=== PATIENT | female | born 1945 | race Asian ===

== ENCOUNTER → 2019-01-29 | Outpatient (CLI) | payer MEDICARE | LOC: FB.CLBR 08:00 | PROVIDERS: ATTEND Nurse Practitioner Family | DX: R21 Rash and other nonspecific skin eruption (principal); L50.0 Allergic urticaria | CPT/HCPCS: 99213 ==

== ENCOUNTER 2021-09-21 18:55 | Emergency (ER) | payer MEDICARE ==
[2021-09-21] MEDS ORDERED: Acetaminophen/HYDROcodone 325-5 MG Tab PO ONE (18:56)
[2021-09-21 20:20] LABS: ESTIMATED GFR 92 mL/min (>60)
[2021-09-21] MEDS ORDERED: oxyCODONE 5 MG Tab PO ONE (20:26)
[2021-09-21] MEDS ORDERED: Ondansetron 4 MG Tab.DIS PO ONE (20:26)
[2021-09-21] MEDS ORDERED: traMADol 50 MG Tab PO ONE (20:41)
== END 2021-09-21 22:48 | disposition home or self-care (01) ==
LOC: FB.ED 18:55
DX: S32.040A Wedge compression fracture of fourth lumbar vertebra, initial encounter for closed fracture (principal); M81.0 Age-related osteoporosis without current pathological fracture; M51.36 Other intervertebral disc degeneration, lumbar region; Z79.899 Other long term (current) drug therapy; W18.40XA Slipping, tripping and stumbling without falling, unspecified, initial encounter; Y92.129 Unspecified place in nursing home as the place of occurrence of the external cause
CPT/HCPCS: 36415; 72131; 80053; 80307; 81001; 85025; 99284; A9270; Q0162

== ENCOUNTER 2021-09-24 00:40 | Inpatient (IN) | payer MEDICARE ==
[2021-09-24] MEDS ORDERED: Ondansetron 4 MG/2 ML SDV IV PRN (01:00)
[2021-09-24] MEDS: Sodium Chloride 0.9% 1,000 ML IV SCH ×3 (01:00→21:20)
[2021-09-24] MEDS ORDERED: Acetaminophen/HYDROcodone 325-5 MG Tab PO PRN (01:00)
[2021-09-24] MEDS ORDERED: Sodium Chloride 0.9% 10 ML Syringe FLUSH PRN (01:12)
[2021-09-24 01:29] LABS: ESTIMATED GFR 89 mL/min (>60)
[2021-09-24] MEDS ORDERED: Acetaminophen/oxyCODONE 325-5 MG Tab PO PRN (01:30)
[2021-09-24] MEDS: Morphine 2 MG/ML SYRINGE IVPUSH PRN (01:31)
[2021-09-24] MEDS: Enoxaparin 40 MG/0.4 ML Syringe SUBCUT SCH (04:29)
[2021-09-24] MEDS ORDERED: Bisacodyl 10 MG Supp RECTAL PRN (09:48)
[2021-09-24] MEDS ORDERED: Sertraline 100 MG Tab PO SCH (10:00)
[2021-09-24] MEDS ORDERED: cefTRIAXone 1 GM Vial IVPUSH SCH (10:00)
[2021-09-24] MEDS: Ibuprofen 200 MG Tab PO SCH ×3 (10:46→20:07)
[2021-09-24] MEDS: Lisinopril 10 MG Tab PO SCH (10:46)
[2021-09-24] MEDS: Sertraline 50 MG Tab PO SCH (10:46)
[2021-09-24] MEDS: amLODIPine 10 MG Tab PO SCH (10:46)
[2021-09-24] MEDS: Montelukast 10 MG Tab PO SCH (10:47)
[2021-09-24] MEDS: Acetaminophen 500 MG Tab PO SCH ×3 (10:47→20:07)
[2021-09-24] MEDS: oxyCODONE 5 MG Tab PO PRN ×3 (10:52→20:05)
[2021-09-24] MEDS: Fluticasone NASAL Spray 16 GM Bottle NASBOTH SCH (20:09)
[2021-09-24] MEDS ORDERED: atorvaSTATin 10 MG Tab PO SCH (21:00)
[2021-09-25] MEDS: Enoxaparin 40 MG/0.4 ML Syringe SUBCUT SCH (01:27)
[2021-09-25] MEDS: Morphine 2 MG/ML SYRINGE IVPUSH PRN (01:28)
[2021-09-25] MEDS: Acetaminophen 500 MG Tab PO SCH ×2 (03:22→08:04)
[2021-09-25] MEDS: Ibuprofen 200 MG Tab PO SCH ×2 (03:22→08:05)
[2021-09-25 06:47] LABS: ESTIMATED GFR 92 mL/min (>60)
[2021-09-25] MEDS: Sertraline 50 MG Tab PO SCH (08:05)
[2021-09-25] MEDS: Montelukast 10 MG Tab PO SCH (08:05)
[2021-09-25] MEDS: Lisinopril 10 MG Tab PO SCH (08:05)
[2021-09-25] MEDS: Fluticasone NASAL Spray 16 GM Bottle NASBOTH SCH (08:05)
[2021-09-25] MEDS: amLODIPine 10 MG Tab PO SCH (08:05)
[2021-09-25] MEDS ORDERED: cefTRIAXone 1 GM Vial IM ONE (10:15)
[2021-09-25] MEDS ORDERED: cefTRIAXone 1 GM Vial IM SCH ×2 (10:15→11:00)
[2021-09-25] MEDS: oxyCODONE 5 MG Tab PO PRN (10:54)
== END 2021-09-25 12:50 | disposition home health service (06) | DRG 552 ==
LOC: FB.ED 00:40 → FB.MS 01:00
PROVIDERS: ADMIT Family Medicine; ATTEND Family Medicine
DX: S32.049A Unspecified fracture of fourth lumbar vertebra, initial encounter for closed fracture (principal); W07.XXXA Fall from chair, initial encounter; Y92.59 Other trade areas as the place of occurrence of the external cause; S32.040A Wedge compression fracture of fourth lumbar vertebra, initial encounter for closed fracture; M19.90 Unspecified osteoarthritis, unspecified site; N30.00 Acute cystitis without hematuria; M81.0 Age-related osteoporosis without current pathological fracture; F03.90 Unspecified dementia, unspecified severity, without behavioral disturbance, psychotic disturbance, mood disturbance, and anxiety; F32.A Depression, unspecified; E78.5 Hyperlipidemia, unspecified; Z96.641 Presence of right artificial hip joint; G89.29 Other chronic pain; K21.9 Gastro-esophageal reflux disease without esophagitis; I10 Essential (primary) hypertension; E03.9 Hypothyroidism, unspecified; Z79.1 Long term (current) use of non-steroidal anti-inflammatories (NSAID); Z79.52 Long term (current) use of systemic steroids; Z79.899 Other long term (current) drug therapy; Z87.440 Personal history of urinary (tract) infections; Z98.42 Cataract extraction status, left eye; Z98.41 Cataract extraction status, right eye; Z79.890 Hormone replacement therapy; W07.XXXD Fall from chair, subsequent encounter
CPT/HCPCS: 36415; 80048; 80053; 81001; 82550; 85025; 87086; 87088; 87186; A9270-GY; J0696; J1650; J2270; J3490; J7030

== ENCOUNTER 2021-10-30 08:02 | Observation (INO) | payer MEDICARE ==
[2021-10-30 09:02] LABS: ESTIMATED GFR 89 mL/min (>60)
[2021-10-30] MEDS ORDERED: Acetaminophen/HYDROcodone 325-5 MG Tab PO STA (09:35)
[2021-10-30] MEDS ORDERED: Sodium Chloride 0.9% 10 ML Syringe FLUSH PRN (11:00)
[2021-10-30] MEDS ORDERED: Ketorolac 30 MG/ML SDV IVPUSH PRN (11:00)
[2021-10-30] MEDS ORDERED: Ondansetron 4 MG/2 ML SDV IV PRN (11:00)
[2021-10-30] MEDS: Sodium Chloride 0.9% 1,000 ML IV SCH ×2 (11:46→19:59)
[2021-10-30] MEDS: Ketorolac 15 MG/ML SDV IVPUSH PRN (11:54)
[2021-10-30] MEDS ORDERED: Magnesium Hydroxide 400 MG/5 ML Susp 30 ML Cup PO PRN (13:46)
[2021-10-30] MEDS ORDERED: Sennosides 8.6 MG Tab PO PRN (13:46)
[2021-10-30] MEDS ORDERED: Bisacodyl 10 MG Supp RECTAL PRN (13:46)
[2021-10-30] MEDS ORDERED: oxyCODONE 5 MG Tab PO PRN (13:46)
[2021-10-30] MEDS ORDERED: guaiFENesin 100 MG/5 ML Soln 5 ML UD Cup PO PRN (13:46)
[2021-10-30] MEDS ORDERED: Loperamide 2 MG Cap PO PRN (13:46)
[2021-10-30] MEDS: ACETAMINOPHEN 500 MG PO SCH ×2 (14:00→19:53)
[2021-10-30] MEDS: Nitrofurantoin Monohydrate/Macrocrystalline 100 MG Cap PO SCH ×2 (14:26→20:17)
[2021-10-30] MEDS: Enoxaparin 40 MG/0.4 ML Syringe SUBCUT SCH (14:26)
[2021-10-30] MEDS: Acetaminophen/HYDROcodone 325-5 MG Tab PO PRN (18:13)
[2021-10-30] MEDS: atorvaSTATin 10 MG Tab ** OWN MED PO SCH (20:15)
[2021-10-30] MEDS: SODIUM CHLORIDE 1 GM PO SCH (20:16)
[2021-10-30] MEDS: Montelukast 10 MG Tab ** OWN MED PO SCH (20:16)
[2021-10-30] MEDS ORDERED: MIRTAZAPINE 30 MG PO SCH (21:00)
[2021-10-30] MEDS ORDERED: Fluticasone NASAL Spray 16 GM Bottle NASBOTH SCH (21:00)
[2021-10-31] MEDS: ACETAMINOPHEN 500 MG PO SCH ×4 (01:29→20:30)
[2021-10-31] MEDS: Sodium Chloride 0.9% 1,000 ML IV SCH (04:26)
[2021-10-31 06:32] LABS: ESTIMATED GFR 97 mL/min (>60)
[2021-10-31] MEDS ORDERED: Aluminum Hydroxide/Magnesium Hydroxide Susp 30 ML Cup PO PRN (08:04)
[2021-10-31] MEDS ORDERED: tiZANidine 4 MG Tab PO PRN (09:09)
[2021-10-31] MEDS: Nitrofurantoin Monohydrate/Macrocrystalline 100 MG Cap PO SCH ×2 (09:22→20:36)
[2021-10-31] MEDS: SODIUM CHLORIDE 1 GM PO SCH ×3 (09:23→20:34)
[2021-10-31] MEDS: Sertraline 100 MG Tab *PTOM PO SCH (09:23)
[2021-10-31] MEDS: Lisinopril 10 MG Tab *PTOM PO SCH (09:23)
[2021-10-31] MEDS: Acetaminophen/HYDROcodone 325-5 MG Tab PO PRN (09:26)
[2021-10-31] MEDS: Enoxaparin 40 MG/0.4 ML Syringe SUBCUT SCH (15:09)
[2021-10-31] MEDS: atorvaSTATin 10 MG Tab ** OWN MED PO SCH (20:32)
[2021-10-31] MEDS: Montelukast 10 MG Tab ** OWN MED PO SCH (20:34)
[2021-10-31] MEDS ORDERED: Mirtazapine 15 MG Tab *PTOM PO SCH (21:00)
[2021-11-01] MEDS: ACETAMINOPHEN 500 MG PO SCH ×2 (02:09→08:16)
[2021-11-01] MEDS: Acetaminophen/HYDROcodone 325-5 MG Tab PO PRN (04:27)
[2021-11-01] MEDS: Ketorolac 15 MG/ML SDV IVPUSH PRN (04:28)
[2021-11-01 06:41] LABS: ESTIMATED GFR 92 mL/min (>60)
[2021-11-01] MEDS: Nitrofurantoin Monohydrate/Macrocrystalline 100 MG Cap PO SCH (08:16)
[2021-11-01] MEDS: SODIUM CHLORIDE 1 GM PO SCH (08:18)
[2021-11-01] MEDS: Lisinopril 10 MG Tab *PTOM PO SCH (08:18)
[2021-11-01] MEDS: Sertraline 100 MG Tab *PTOM PO SCH (08:19)
== END 2021-11-01 09:45 | disposition home or self-care (01) ==
LOC: FB.ED 08:02 → FB.MS 11:00
PROVIDERS: ADMIT Student in an Organized Health Care Education/Training Program; ATTEND Student in an Organized Health Care Education/Training Program
DX: F03.90 Unspecified dementia, unspecified severity, without behavioral disturbance, psychotic disturbance, mood disturbance, and anxiety (principal); E78.5 Hyperlipidemia, unspecified; I10 Essential (primary) hypertension; E03.9 Hypothyroidism, unspecified; S32.040D Wedge compression fracture of fourth lumbar vertebra, subsequent encounter for fracture with routine healing; W19.XXXD Unspecified fall, subsequent encounter; M81.0 Age-related osteoporosis without current pathological fracture; N30.00 Acute cystitis without hematuria; E78.00 Pure hypercholesterolemia, unspecified; F32.A Depression, unspecified; Z79.02 Long term (current) use of antithrombotics/antiplatelets; Z79.51 Long term (current) use of inhaled steroids; Z79.899 Other long term (current) drug therapy; Z20.822 Contact with and (suspected) exposure to COVID-19; Z96.641 Presence of right artificial hip joint; Z98.890 Other specified postprocedural states
CPT/HCPCS: 36415; 73521; 80048; 81001; 82550; 85025; 87086; 94150; 99284; A9270; J1650; J1885; J3490; J7030; U0002

== ENCOUNTER 2021-11-02 15:06 | Observation (INO) | payer MEDICARE ==
[2021-11-02] MEDS ORDERED: Acetaminophen/HYDROcodone 325-5 MG Tab PO ONE (15:35)
[2021-11-02] MEDS ORDERED: Ketorolac 30 MG/ML SDV IM STA (15:35)
[2021-11-02 16:11] LABS: ESTIMATED GFR 76 mL/min (>60)
[2021-11-02] MEDS ORDERED: Alum Hydroxide/Mag Hydroxide 15 ML, Lidocaine 2% 15 ML PO ONE ×2 (16:16)
[2021-11-02] MEDS ORDERED: Sodium Chloride 0.9% 10 ML Syringe FLUSH PRN (16:26)
[2021-11-02] MEDS: Sodium Chloride 0.9% 1,000 ML IV SCH (16:40)
[2021-11-02] MEDS ORDERED: Acetaminophen/oxyCODONE 325-5 MG Tab PO PRN (16:55)
[2021-11-02] MEDS ORDERED: Ondansetron 4 MG/2 ML SDV IV PRN (16:55)
[2021-11-02] MEDS ORDERED: Ketorolac 30 MG/ML SDV IM PRN (16:55)
[2021-11-02] MEDS ORDERED: Enoxaparin 40 MG/0.4 ML Syringe SUBCUT SCH (17:00)
[2021-11-02] MEDS ORDERED: Ketorolac 15 MG/ML SDV IM PRN (17:11)
[2021-11-02] MEDS ORDERED: Sulfamethoxazole/Trimethoprim 800-160 MG Tab PO ONE ×2 (17:15)
[2021-11-02] MEDS ORDERED: TIZANIDINE 2 MG PO PRN (17:55)
[2021-11-02] MEDS ORDERED: oxyCODONE 5 MG Tab PO PRN (17:55)
[2021-11-02] MEDS ORDERED: HYDROCORTISONE TOP PRN (17:55)
[2021-11-02] MEDS ORDERED: BISACODYL 10 MG RECTAL PRN (17:55)
[2021-11-02] MEDS ORDERED: Sennosides 8.6 MG Tab PO PRN (17:55)
[2021-11-02] MEDS ORDERED: Acetaminophen 500 MG Tab PO PRN (17:55)
[2021-11-02] MEDS: ACETAMINOPHEN 500 MG PO SCH (20:49)
[2021-11-02] MEDS: Sodium Chloride 1 GM Tab PO SCH (20:50)
[2021-11-02] MEDS ORDERED: ATORVASTATIN 10 MG PO SCH (21:00)
[2021-11-02] MEDS ORDERED: Fluticasone NASAL Spray 16 GM Bottle *PT OWN MED NASBOTH SCH (21:00)
[2021-11-02] MEDS ORDERED: MIRTAZAPINE 15 MG PO SCH (21:00)
[2021-11-02] MEDS ORDERED: IBUPROFEN 200 MG PO SCH (21:00)
[2021-11-03] MEDS: Sodium Chloride 0.9% 1,000 ML IV SCH ×2 (00:31→08:35)
[2021-11-03 06:32] LABS: ESTIMATED GFR 89 mL/min (>60)
[2021-11-03] MEDS ORDERED: guaiFENesin 100 MG/5 ML Soln 5 ML UD Cup PO PRN (08:07)
[2021-11-03] MEDS ORDERED: Magnesium Hydroxide 400 MG/5 ML Susp 30 ML Cup PO PRN (08:13)
[2021-11-03] MEDS ORDERED: Aluminum Hydroxide/Magnesium Hydroxide Susp 30 ML Cup PO PRN (08:14)
[2021-11-03] MEDS ORDERED: Loperamide 2 MG Cap PO PRN (08:15)
[2021-11-03] MEDS ORDERED: Sulfamethoxazole/Trimethoprim 800-160 MG Tab PO SCH (09:00)
[2021-11-03] MEDS ORDERED: Bisacodyl 10 MG Supp RECTAL PRN (09:00)
[2021-11-03] MEDS ORDERED: tiZANidine 4 MG Tab PO PRN (09:00)
[2021-11-03] MEDS ORDERED: LISINOPRIL 10 MG PO SCH (09:00)
[2021-11-03] MEDS: IBUPROFEN 400 MG PO SCH ×2 (09:13→12:39)
[2021-11-03] MEDS: ACETAMINOPHEN 500 MG PO SCH ×2 (09:33→12:43)
[2021-11-03] MEDS: Sodium Chloride 1 GM Tab PO SCH ×2 (09:33→14:03)
[2021-11-04] MEDS ORDERED: Sertraline 100 MG Tab *PTOM PO SCH (09:00)
== END 2021-11-03 15:35 | disposition home health service (06) ==
LOC: FB.ED 15:06 → FB.MS 16:46
PROVIDERS: ADMIT Student in an Organized Health Care Education/Training Program; ATTEND Student in an Organized Health Care Education/Training Program
DX: F03.90 Unspecified dementia, unspecified severity, without behavioral disturbance, psychotic disturbance, mood disturbance, and anxiety (principal); E78.00 Pure hypercholesterolemia, unspecified; S32.040A Wedge compression fracture of fourth lumbar vertebra, initial encounter for closed fracture; M89.8X9 Other specified disorders of bone, unspecified site; N30.00 Acute cystitis without hematuria; I10 Essential (primary) hypertension; K21.9 Gastro-esophageal reflux disease without esophagitis; M81.0 Age-related osteoporosis without current pathological fracture; E03.9 Hypothyroidism, unspecified; F32.A Depression, unspecified; M15.9 Polyosteoarthritis, unspecified; E78.5 Hyperlipidemia, unspecified; Z79.899 Other long term (current) drug therapy; Z98.890 Other specified postprocedural states
CPT/HCPCS: 36415; 72148; 80048; 80053; 81001; 85025; 94150; 96372; 99284; A9270; J1650; J1885; J3490; J7030; 96360; 96361; G0378

== ENCOUNTER 2021-11-11 15:46 | Observation (INO) | payer MEDICARE ==
[2021-11-11] MEDS ORDERED: fentaNYL 12 MCG/HR Transdermal Patch TRDERM STA (15:50)
[2021-11-11] MEDS ORDERED: Ketorolac 30 MG/ML SDV IM ONE (16:54)
[2021-11-11 17:15] LABS: ESTIMATED GFR 58 mL/min (>60)
[2021-11-11] MEDS ORDERED: Docusate Sodium 100 MG Cap PO PRN (17:21)
[2021-11-11] MEDS ORDERED: Sodium Chloride 0.9% 10 ML Syringe FLUSH PRN (17:21)
[2021-11-11] MEDS ORDERED: oxyCODONE 5 MG Tab PO PRN (17:21)
[2021-11-11] MEDS ORDERED: HYDROCORTISONE TOP PRN (17:26)
[2021-11-11] MEDS: SODIUM CHLORIDE 1 GM PO SCH (18:40)
[2021-11-11] MEDS ORDERED: Non-Formulary Medication 1 Each (Fluticasone Propionate [Flonase] 16 GM Bottle) NASBOTH SCH (21:00)
[2021-11-11] MEDS: ACETAMINOPHEN 500 MG PO SCH (21:05)
[2021-11-11] MEDS: IBUPROFEN 400 MG PO SCH (21:06)
[2021-11-11] MEDS: atorvaSTATin 10 MG Tab **OWN MED PO SCH (21:07)
[2021-11-11] MEDS: Mirtazapine 15 MG Tab **OWN MED PO SCH (21:08)
[2021-11-11] MEDS: Gabapentin 300 MG Cap *PTOM PO SCH (21:08)
[2021-11-12] MEDS: ACETAMINOPHEN 500 MG PO SCH ×4 (04:05→20:25)
[2021-11-12] MEDS: IBUPROFEN 400 MG PO SCH ×4 (04:05→20:25)
[2021-11-12] MEDS: SODIUM CHLORIDE 1 GM PO SCH ×3 (08:51→18:52)
[2021-11-12] MEDS: Lisinopril 10 MG Tab **OWN MED PO SCH (08:53)
[2021-11-12] MEDS: Gabapentin 300 MG Cap *PTOM PO SCH ×3 (08:56→20:24)
[2021-11-12] MEDS: Enoxaparin 40 MG/0.4 ML Syringe SUBCUT SCH (12:14)
[2021-11-12] MEDS: Mirtazapine 15 MG Tab **OWN MED PO SCH (20:28)
[2021-11-12] MEDS: atorvaSTATin 10 MG Tab **OWN MED PO SCH (20:28)
[2021-11-13] MEDS: IBUPROFEN 400 MG PO SCH ×4 (04:13→20:10)
[2021-11-13] MEDS: ACETAMINOPHEN 500 MG PO SCH ×4 (04:13→20:10)
[2021-11-13] MEDS: Pantoprazole 40 MG Tab.CR PO SCH (06:07)
[2021-11-13 06:37] LABS: ESTIMATED GFR 92 mL/min (>60)
[2021-11-13] MEDS: SODIUM CHLORIDE 1 GM PO SCH ×3 (07:28→17:42)
[2021-11-13] MEDS: Lisinopril 10 MG Tab **OWN MED PO SCH (08:53)
[2021-11-13] MEDS: Gabapentin 300 MG Cap *PTOM PO SCH ×3 (08:57→20:10)
[2021-11-13] MEDS: Enoxaparin 40 MG/0.4 ML Syringe SUBCUT SCH (11:52)
[2021-11-13] MEDS: Mirtazapine 15 MG Tab **OWN MED PO SCH (20:10)
[2021-11-13] MEDS: atorvaSTATin 10 MG Tab **OWN MED PO SCH (20:10)
[2021-11-14] MEDS: ACETAMINOPHEN 500 MG PO SCH ×4 (04:04→20:10)
[2021-11-14] MEDS: IBUPROFEN 400 MG PO SCH ×4 (04:04→20:11)
[2021-11-14] MEDS: Pantoprazole 40 MG Tab.CR PO SCH (05:05)
[2021-11-14] MEDS: Gabapentin 300 MG Cap *PTOM PO SCH ×3 (08:20→21:53)
[2021-11-14] MEDS: SODIUM CHLORIDE 1 GM PO SCH ×3 (08:21→17:21)
[2021-11-14] MEDS: Lisinopril 10 MG Tab **OWN MED PO SCH (08:31)
[2021-11-14] MEDS: Enoxaparin 40 MG/0.4 ML Syringe SUBCUT SCH (13:47)
[2021-11-14] MEDS ORDERED: fentaNYL 12 MCG/HR Transdermal Patch TRDERM SCH (16:00)
[2021-11-14] MEDS: atorvaSTATin 10 MG Tab **OWN MED PO SCH (21:50)
[2021-11-14] MEDS: Mirtazapine 15 MG Tab **OWN MED PO SCH (21:52)
[2021-11-15] MEDS: IBUPROFEN 400 MG PO SCH ×4 (03:14→20:01)
[2021-11-15] MEDS: ACETAMINOPHEN 500 MG PO SCH ×4 (03:16→20:01)
[2021-11-15] MEDS: Pantoprazole 40 MG Tab.CR PO SCH (05:45)
[2021-11-15] MEDS: SODIUM CHLORIDE 1 GM PO SCH ×3 (08:27→18:50)
[2021-11-15] MEDS: Gabapentin 300 MG Cap *PTOM PO SCH ×3 (08:29→20:01)
[2021-11-15] MEDS: Lisinopril 10 MG Tab **OWN MED PO SCH (08:30)
[2021-11-15] MEDS ORDERED: Acetaminophen 500 MG Tab PO PRN (10:21)
[2021-11-15] MEDS ORDERED: Bisacodyl 10 MG Supp RECTAL PRN (10:22)
[2021-11-15] MEDS ORDERED: Aluminum Hydroxide/Magnesium Hydroxide Susp 30 ML Cup PO PRN (10:23)
[2021-11-15] MEDS ORDERED: tiZANidine 4 MG Tab PO PRN (10:24)
[2021-11-15] MEDS ORDERED: Magnesium Hydroxide 400 MG/5 ML Susp 30 ML Cup PO PRN (10:24)
[2021-11-15] MEDS ORDERED: Loperamide 2 MG Cap PO PRN (10:25)
[2021-11-15] MEDS ORDERED: Sennosides 8.6 MG Tab PO PRN (10:26)
[2021-11-15] MEDS: Enoxaparin 40 MG/0.4 ML Syringe SUBCUT SCH (12:27)
[2021-11-15] MEDS: atorvaSTATin 10 MG Tab **OWN MED PO SCH (20:01)
[2021-11-15] MEDS: Mirtazapine 15 MG Tab **OWN MED PO SCH (20:01)
[2021-11-16] MEDS: IBUPROFEN 400 MG PO SCH ×2 (03:11→08:11)
[2021-11-16] MEDS: ACETAMINOPHEN 500 MG PO SCH ×2 (03:12→08:11)
[2021-11-16] MEDS ORDERED: Pantoprazole 20 MG Tab, Delayed Release PO SCH (06:00)
[2021-11-16] MEDS: SODIUM CHLORIDE 1 GM PO SCH (08:10)
[2021-11-16] MEDS: Lisinopril 10 MG Tab **OWN MED PO SCH (08:12)
[2021-11-16] MEDS: Gabapentin 300 MG Cap *PTOM PO SCH (08:12)
== END 2021-11-16 09:20 ==
LOC: FB.ED 15:46 → FB.MS 17:07
PROVIDERS: ADMIT Emergency Medicine; ATTEND Student in an Organized Health Care Education/Training Program
DX: M54.16 Radiculopathy, lumbar region (principal); M48.062 Spinal stenosis, lumbar region with neurogenic claudication; S32.040A Wedge compression fracture of fourth lumbar vertebra, initial encounter for closed fracture; F03.90 Unspecified dementia, unspecified severity, without behavioral disturbance, psychotic disturbance, mood disturbance, and anxiety; E78.5 Hyperlipidemia, unspecified; I10 Essential (primary) hypertension; E03.9 Hypothyroidism, unspecified; M81.0 Age-related osteoporosis without current pathological fracture; W19.XXXD Unspecified fall, subsequent encounter; Z20.822 Contact with and (suspected) exposure to COVID-19
CPT/HCPCS: 36415; 71045; 80048; 85025; 85027; 96372; 97161; 97165; 99284; A9270; G0378; J1650; J1885; U0002; 99217; 99220; 99226